=== PATIENT | male | born 1950 | race Caucasian/White ===

== ENCOUNTER 2021-02-11 09:03 | Outpatient (RCR) | payer MEDICARE, SELFPAY | END 2021-03-08 14:47 | disposition home or self-care (01) | LOC: HO.WCC 09:03 | PROVIDERS: PCP Nurse Practitioner Pediatrics; Visit Provider Physician Assistant | DX: L97.321 Non-pressure chronic ulcer of left ankle limited to breakdown of skin (principal); L97.311 Non-pressure chronic ulcer of right ankle limited to breakdown of skin; I10 Essential (primary) hypertension; I73.9 Peripheral vascular disease, unspecified; I87.2 Venous insufficiency (chronic) (peripheral); L30.9 Dermatitis, unspecified; R60.0 Localized edema; F12.90 Cannabis use, unspecified, uncomplicated; Z87.891 Personal history of nicotine dependence; Z79.2 Long term (current) use of antibiotics; Z79.52 Long term (current) use of systemic steroids | CPT/HCPCS: 99204; 99212; 99213 ==